=== PATIENT | male | born 1955 | race Two or more races ===

== ENCOUNTER 2020-11-30 10:34 | Inpatient (IN) | payer OTHER ==
[~2020-11-30] VITALS: Ht 162.6 cm; Wt 76.5 kg
[2020-11-30 11:20] LABS: Basophils # (auto) 0 10 ^3/uL (0-0.2); Basophils % (auto) 0.2 % (0.0-2.0); Eosinophils # (auto) 0 10 ^3/uL (0-0.8); Eosinophils % (auto) 0.1 % (0.0-7.0); Hematocrit 40.3 % (41.0-53.0); Hemoglobin 13.4 g/dL (13.5-17.5); Lymphocytes # (auto) 0.9 10 ^3/uL (0.4-5.4); Mean Corpuscular Hemoglobin 28.2 pg (28.0-32.0); Mean Corpuscular Hgb Conc. 33.3 g/dL (32.0-36.0); Mean Corpuscular Volume 84.7 fL (80.0-100.0); Monocytes # (auto) 0.8 10 ^3/uL (0-1.3); Monocytes % (auto) 8.4 % (0.0-12.0); Neutrophils # (auto) 8.2 10 ^3/uL (1.6-8.6); Neutrophils % (auto) 82.3 % (37.0-80.0); Platelet Count (auto) 227 10^3/uL (140-450); Red Blood Cells 4.76 10^6/uL (4.5-5.90); Red Cell Distribution Width 13.7 % (11.8-14.3)
[2020-11-30 11:30] LABS: Albumin 3.3 g/dL (3.4-5.0); Calcium 8.8 mg/dL (8.5-10.1)
[2020-11-30 11:35] LABS: BUN/Creatinine Ratio 20.2; Bilirubin, Total 0.8 mg/dL (0.2-1.0); Total Protein 8.1 g/dL (6.4-8.2)
[2020-11-30] MEDS ORDERED: FUROSEMIDE 40 MG/4 ML VIAL IV ONE (12:30)
[2020-11-30] MEDS ORDERED: ASPirin 81 mg TAB PO ONE (12:30)
[2020-11-30] MEDS ORDERED: METOPROLOL TARTRATE 1MG/1ML-5ML VIAL IV ONE (12:30)
[2020-11-30] MEDS ORDERED: ENOXAPARIN SOD 60 MG/0.6 ML SYRINGE SC ONE (12:30)
[2020-11-30] MEDS ORDERED: HYDROcodone-ACET 10/325MG TAB PO PRN (16:15)
[2020-11-30] MEDS ORDERED: NITROGLYCERIN 0.4 MG SL TAB SL PRN (16:15)
[2020-11-30] MEDS ORDERED: DEXTROSE (50%) 50ML SYRG IV PRN (16:15)
[2020-11-30] MEDS ORDERED: MORPHINE SULF INJ 2 MG/ML SYRINGE 1ML IV PRN (16:15)
[2020-11-30] MEDS: ACCU-CHEK COMFORT CURVE STRIP VI SCH (17:58)
[2020-11-30] MEDS: InsuLIN REG 1unit/0.01ml Soln (100units/ml) SC SCH (18:02)
[2020-11-30] MEDS ORDERED: ACETAMINOPHEN 500 MG TAB PO ONE (20:00)
[2020-11-30] MEDS ORDERED: ENOXAPARIN SOD 60 MG/0.6 ML SYRINGE SC SCH (22:00)
[2020-11-30] MEDS ORDERED: POTASSIUM CHL 10 Meq TABLET PO SCH (22:00)
[2020-11-30 22:15] VITALS: BP 100/65
[2020-11-30] MEDS ORDERED: VANCOMYCIN PER PHARMACY 0 MG IV SCH (23:30)
[2020-11-30] MEDS ORDERED: VANCOMYCIN 1GM/250ML 250 ML IV ONE (23:45)
[2020-12-01] MEDS ORDERED: VANCOMYCIN 1GM/250ML 250 ML IV ONE (00:45)
[2020-12-01] MEDS: busPIRone HCL 10 MG TAB PO SCH ×4 (00:49→22:00)
[2020-12-01] MEDS: ACCU-CHEK COMFORT CURVE STRIP VI SCH ×5 (00:54→21:14)
[2020-12-01] MEDS: InsuLIN REG 1unit/0.01ml Soln (100units/ml) SC SCH ×6 (01:19→21:21)
[2020-12-01] MEDS: FUROSEMIDE 20 MG/2 ML VIAL IV SCH ×2 (01:39→06:00)
[2020-12-01] MEDS: levoFLOXacin 500MG 100 ML IV SCH (01:40)
[2020-12-01 05:00] VITALS: BP 88/57
[2020-12-01 05:37] LABS: BUN/Creatinine Ratio 21.4; Calcium 8.3 mg/dL (8.5-10.1)
[2020-12-01] MEDS: LEVOTHYROXINE SODIUM 50 MCG TAB PO SCH (06:28)
[2020-12-01 09:00] VITALS: BP 106/74
[2020-12-01 09:43] LABS: INR 1.22 (0.9-1.15); Partial Thromboplastin Time 35.5 sec (23.0-31.2)
[2020-12-01] MEDS: ASPirin 81 mg TAB PO SCH (09:52)
[2020-12-01] MEDS: POTASSIUM CHL 20 Meq TABLET PO SCH ×2 (09:53→21:13)
[2020-12-01] MEDS: LISINOPRIL 10 MG TAB PO SCH (09:53)
[2020-12-01] MEDS: SERTRALINE HCL 50 MG TAB PO SCH (09:54)
[2020-12-01] MEDS: ATORVASTATIN 20 MG TAB PO SCH (09:54)
[2020-12-01] MEDS: PANTOPRAZOLE 40 MG TAB PO SCH (09:55)
[2020-12-01] MEDS: ENOXAPARIN SOD 40 MG/0.4 ML SYRINGE SC SCH (09:56)
[2020-12-01] MEDS: METOPROLOL SUCCINATE XL 50 MG TAB PO SCH (09:56)
[2020-12-01] MEDS: FUROSEMIDE 40 MG/4 ML VIAL IV SCH ×2 (10:30→18:00)
[2020-12-01] MEDS: VANCOMYCIN 750mg/250ml 250 ML IV SCH (12:15)
[2020-12-01 13:00] VITALS: BP 90/66
[2020-12-01] MEDS: ALBUTEROL SULF 2.5 MG/0.5ML(0.5%) NEB SOLN NEB SCH ×2 (14:14→22:39)
[2020-12-01 15:49] VITALS: BP 90/66
[2020-12-01 16:22] VITALS: BP 89/62
[2020-12-01 22:00] VITALS: BP 103/67
[2020-12-02] MEDS: VANCOMYCIN 750mg/250ml 250 ML IV SCH ×3 (00:07→23:12)
[2020-12-02] MEDS: levoFLOXacin 500MG 100 ML IV SCH (01:10)
[2020-12-02 05:00] VITALS: BP 101/73
[2020-12-02 05:52] LABS: Basophils # (auto) 0 10 ^3/uL (0-0.2); Basophils % (auto) 0.3 % (0.0-2.0); Eosinophils # (auto) 0 10 ^3/uL (0-0.8); Hematocrit 36.5 % (41.0-53.0); Hemoglobin 12.5 g/dL (13.5-17.5); Lymphocytes # (auto) 1.3 10 ^3/uL (0.4-5.4); Lymphocytes % (auto) 10.8 % (10.0-50.0); Mean Corpuscular Hemoglobin 28.5 pg (28.0-32.0); Mean Corpuscular Hgb Conc. 34.4 g/dL (32.0-36.0); Mean Corpuscular Volume 82.9 fL (80.0-100.0); Monocytes # (auto) 1.4 10 ^3/uL (0-1.3); Monocytes % (auto) 11.3 % (0.0-12.0); Neutrophils # (auto) 9.5 10 ^3/uL (1.6-8.6); Neutrophils % (auto) 77.6 % (37.0-80.0); Nucleated Red Blood Cells % 0.1 %; Platelet Count (auto) 233 10^3/uL (140-450); Red Cell Distribution Width 13.4 % (11.8-14.3); White Blood Cell 12.3 10^3/uL (4.4-10.8)
[2020-12-02] MEDS: FUROSEMIDE 40 MG/4 ML VIAL IV SCH ×3 (05:53→17:36)
[2020-12-02] MEDS: ACCU-CHEK COMFORT CURVE STRIP VI SCH ×4 (05:56→22:00)
[2020-12-02] MEDS: InsuLIN REG 1unit/0.01ml Soln (100units/ml) SC SCH ×4 (06:05→23:03)
[2020-12-02 06:17] LABS: Calcium 8.4 mg/dL (8.5-10.1); Potassium 4.5 mmol/L (3.5-5.1)
[2020-12-02] MEDS: LEVOTHYROXINE SODIUM 50 MCG TAB PO SCH (06:23)
[2020-12-02] MEDS: ALBUTEROL SULF 2.5 MG/0.5ML(0.5%) NEB SOLN NEB SCH ×3 (07:13→22:18)
[2020-12-02 08:55] VITALS: BP 102/68
[2020-12-02] MEDS: SERTRALINE HCL 50 MG TAB PO SCH (09:49)
[2020-12-02] MEDS: busPIRone HCL 10 MG TAB PO SCH ×2 (09:49→22:00)
[2020-12-02] MEDS: POTASSIUM CHL 20 Meq TABLET PO SCH ×2 (09:49→23:06)
[2020-12-02] MEDS: ASPirin 81 mg TAB PO SCH (09:50)
[2020-12-02] MEDS: ATORVASTATIN 20 MG TAB PO SCH (09:50)
[2020-12-02] MEDS: LISINOPRIL 10 MG TAB PO SCH (09:50)
[2020-12-02] MEDS: PANTOPRAZOLE 40 MG TAB PO SCH (09:50)
[2020-12-02] MEDS: METOPROLOL SUCCINATE XL 50 MG TAB PO SCH (09:51)
[2020-12-02] MEDS: ENOXAPARIN SOD 40 MG/0.4 ML SYRINGE SC SCH (09:58)
[2020-12-02 13:08] VITALS: BP 94/60
[2020-12-02 16:47] VITALS: BP 90/59
[2020-12-02 22:00] VITALS: BP 102/52
[2020-12-03] MEDS: levoFLOXacin 500MG 100 ML IV SCH (02:04)
[2020-12-03 05:00] VITALS: BP 100/59
[2020-12-03 06:13] LABS: Basophils # (auto) 0.1 10 ^3/uL (0-0.2); Basophils % (auto) 0.5 % (0.0-2.0); Eosinophils # (auto) 0.1 10 ^3/uL (0-0.8); Eosinophils % (auto) 0.9 % (0.0-7.0); Hematocrit 35.3 % (41.0-53.0); Hemoglobin 12.1 g/dL (13.5-17.5); Lymphocytes # (auto) 1.8 10 ^3/uL (0.4-5.4); Lymphocytes % (auto) 18.2 % (10.0-50.0); Mean Corpuscular Hemoglobin 28.5 pg (28.0-32.0); Mean Corpuscular Hgb Conc. 34.4 g/dL (32.0-36.0); Mean Corpuscular Volume 82.9 fL (80.0-100.0); Monocytes % (auto) 9.9 % (0.0-12.0); Neutrophils # (auto) 6.8 10 ^3/uL (1.6-8.6); Neutrophils % (auto) 70.5 % (37.0-80.0); Nucleated Red Blood Cells % 0.1 %; Platelet Count (auto) 239 10^3/uL (140-450); Red Blood Cells 4.26 10^6/uL (4.5-5.90); Red Cell Distribution Width 13.7 % (11.8-14.3); White Blood Cell 9.7 10^3/uL (4.4-10.8)
[2020-12-03] MEDS: ACCU-CHEK COMFORT CURVE STRIP VI SCH ×4 (06:28→22:05)
[2020-12-03 06:32] LABS: BUN/Creatinine Ratio 28.4; Potassium 4.4 mmol/L (3.5-5.1)
[2020-12-03] MEDS: InsuLIN REG 1unit/0.01ml Soln (100units/ml) SC SCH ×4 (06:32→22:10)
[2020-12-03] MEDS: LEVOTHYROXINE SODIUM 50 MCG TAB PO SCH (06:36)
[2020-12-03] MEDS: FUROSEMIDE 20 MG/2 ML VIAL IV SCH ×2 (06:39→18:17)
[2020-12-03] MEDS: ALBUTEROL SULF 2.5 MG/0.5ML(0.5%) NEB SOLN NEB SCH ×3 (07:12→22:04)
[2020-12-03 09:00] VITALS: BP 90/59
[2020-12-03] MEDS: ASPirin 81 mg TAB PO SCH (09:50)
[2020-12-03] MEDS: busPIRone HCL 10 MG TAB PO SCH ×2 (09:50→22:00)
[2020-12-03] MEDS: POTASSIUM CHL 20 Meq TABLET PO SCH ×2 (09:50→22:05)
[2020-12-03] MEDS: METOPROLOL SUCCINATE XL 50 MG TAB PO SCH (09:51)
[2020-12-03] MEDS: ATORVASTATIN 20 MG TAB PO SCH (09:51)
[2020-12-03] MEDS: PANTOPRAZOLE 40 MG TAB PO SCH (09:51)
[2020-12-03] MEDS: SERTRALINE HCL 50 MG TAB PO SCH (09:52)
[2020-12-03] MEDS: LISINOPRIL 5 MG TAB PO SCH (09:52)
[2020-12-03] MEDS: ENOXAPARIN SOD 40 MG/0.4 ML SYRINGE SC SCH (09:52)
[2020-12-03] MEDS: VANCOMYCIN 750mg/250ml 250 ML IV SCH (11:57)
[2020-12-03 13:00] VITALS: BP 83/63
[2020-12-03 17:00] VITALS: BP 95/70
[2020-12-03 22:14] VITALS: BP 93/72
[2020-12-04] MEDS: VANCOMYCIN 750mg/250ml 250 ML IV SCH ×2 (00:14→12:19)
[2020-12-04] MEDS: levoFLOXacin 500MG 100 ML IV SCH (01:56)
[2020-12-04 05:17] VITALS: BP 105/69
[2020-12-04] MEDS: FUROSEMIDE 20 MG/2 ML VIAL IV SCH ×2 (06:00→17:33)
[2020-12-04 06:13] LABS: Calcium 7.6 mg/dL (8.5-10.1); Potassium 4.2 mmol/L (3.5-5.1)
[2020-12-04 06:15] LABS: BUN/Creatinine Ratio 26.9
[2020-12-04] MEDS: ALBUTEROL SULF 2.5 MG/0.5ML(0.5%) NEB SOLN NEB SCH ×3 (06:32→19:30)
[2020-12-04] MEDS: InsuLIN REG 1unit/0.01ml Soln (100units/ml) SC SCH ×4 (06:38→21:20)
[2020-12-04] MEDS: ACCU-CHEK COMFORT CURVE STRIP VI SCH ×4 (06:40→21:20)
[2020-12-04] MEDS: LEVOTHYROXINE SODIUM 50 MCG TAB PO SCH (06:40)
[2020-12-04 06:47] VITALS: BP 105/69
[2020-12-04 09:00] VITALS: BP 104/66
[2020-12-04] MEDS: SERTRALINE HCL 50 MG TAB PO SCH (09:08)
[2020-12-04] MEDS: ASPirin 81 mg TAB PO SCH (09:08)
[2020-12-04] MEDS: busPIRone HCL 10 MG TAB PO SCH ×2 (09:08→22:00)
[2020-12-04] MEDS: ENOXAPARIN SOD 40 MG/0.4 ML SYRINGE SC SCH (09:09)
[2020-12-04] MEDS: POTASSIUM CHL 20 Meq TABLET PO SCH ×2 (09:10→21:20)
[2020-12-04] MEDS: PANTOPRAZOLE 40 MG TAB PO SCH (09:10)
[2020-12-04] MEDS: METOPROLOL SUCCINATE XL 50 MG TAB PO SCH (09:17)
[2020-12-04] MEDS: LISINOPRIL 5 MG TAB PO SCH (09:18)
[2020-12-04] MEDS: ATORVASTATIN 20 MG TAB PO SCH (09:20)
[2020-12-04] MEDS ORDERED: ALUM & MAG HYDROX-SIMETH LIQ(MAALOX) 30 ML PO PRN (11:15)
[2020-12-04] MEDS: ALUM & MAG HYDROX-SIMETH LIQ(MAALOX) 30 ML PO PRN ×2 (12:04→21:15)
[2020-12-04 13:00] VITALS: BP 90/65
[2020-12-04 17:02] VITALS: BP 99/60
[2020-12-04 21:55] VITALS: BP 97/63
[2020-12-05] MEDS: levoFLOXacin 500MG 100 ML IV SCH (02:00)
[2020-12-05 05:13] VITALS: BP 90/60
[2020-12-05 05:42] VITALS: BP 96/62
[2020-12-05] MEDS: ALBUTEROL SULF 2.5 MG/0.5ML(0.5%) NEB SOLN NEB SCH ×3 (06:03→22:49)
[2020-12-05] MEDS: FUROSEMIDE 20 MG/2 ML VIAL IV SCH ×2 (06:06→18:00)
[2020-12-05] MEDS: LEVOTHYROXINE SODIUM 50 MCG TAB PO SCH (06:07)
[2020-12-05] MEDS: ACCU-CHEK COMFORT CURVE STRIP VI SCH ×4 (06:07→21:31)
[2020-12-05] MEDS: ALUM & MAG HYDROX-SIMETH LIQ(MAALOX) 30 ML PO PRN ×2 (06:41→11:48)
[2020-12-05] MEDS: InsuLIN REG 1unit/0.01ml Soln (100units/ml) SC SCH ×4 (06:42→22:00)
[2020-12-05 09:00] VITALS: BP 99/58
[2020-12-05] MEDS: ATORVASTATIN 20 MG TAB PO SCH (09:25)
[2020-12-05] MEDS: ASPirin 81 mg TAB PO SCH (09:25)
[2020-12-05] MEDS: POTASSIUM CHL 20 Meq TABLET PO SCH ×2 (09:26→21:31)
[2020-12-05] MEDS: ENOXAPARIN SOD 40 MG/0.4 ML SYRINGE SC SCH (09:26)
[2020-12-05] MEDS: PANTOPRAZOLE 40 MG TAB PO SCH (09:26)
[2020-12-05] MEDS: LISINOPRIL 5 MG TAB PO SCH (09:26)
[2020-12-05] MEDS: SERTRALINE HCL 50 MG TAB PO SCH (09:26)
[2020-12-05] MEDS: busPIRone HCL 10 MG TAB PO SCH ×2 (09:27→21:31)
[2020-12-05 11:11] LABS: BUN/Creatinine Ratio 18.6; Potassium 4.4 mmol/L (3.5-5.1)
[2020-12-05 12:47] VITALS: BP 93/67
[2020-12-05 16:42] VITALS: BP 102/71
[2020-12-05] MEDS: VANCOMYCIN 750mg/250ml 250 ML IV SCH ×2 (18:09)
[2020-12-05 22:00] VITALS: BP 100/64
[2020-12-06] MEDS: levoFLOXacin 500MG 100 ML IV SCH (01:56)
[2020-12-06 05:38] VITALS: BP 96/59
[2020-12-06] MEDS: ALUM & MAG HYDROX-SIMETH LIQ(MAALOX) 30 ML PO PRN ×3 (05:48→18:15)
[2020-12-06 05:53] LABS: Basophils # (auto) 0 10 ^3/uL (0-0.2); Basophils % (auto) 0.5 % (0.0-2.0); Eosinophils # (auto) 0.2 10 ^3/uL (0-0.8); Eosinophils % (auto) 2.9 % (0.0-7.0); Hemoglobin 12.6 g/dL (13.5-17.5); Lymphocytes % (auto) 25.2 % (10.0-50.0); Mean Corpuscular Hemoglobin 28.4 pg (28.0-32.0); Mean Corpuscular Volume 83.3 fL (80.0-100.0); Monocytes # (auto) 0.8 10 ^3/uL (0-1.3); Monocytes % (auto) 10.5 % (0.0-12.0); Neutrophils # (auto) 4.9 10 ^3/uL (1.6-8.6); Neutrophils % (auto) 60.9 % (37.0-80.0); Nucleated Red Blood Cells % 0.1 %; Platelet Count (auto) 273 10^3/uL (140-450); Red Blood Cells 4.44 10^6/uL (4.5-5.90); Red Cell Distribution Width 13.4 % (11.8-14.3)
[2020-12-06] MEDS: VANCOMYCIN 750mg/250ml 250 ML IV SCH ×2 (06:00→17:55)
[2020-12-06] MEDS: FUROSEMIDE 20 MG/2 ML VIAL IV SCH ×2 (06:00→11:50)
[2020-12-06 06:14] LABS: BUN/Creatinine Ratio 18.9; Calcium 7.9 mg/dL (8.5-10.1); Potassium 4.4 mmol/L (3.5-5.1)
[2020-12-06] MEDS: LEVOTHYROXINE SODIUM 50 MCG TAB PO SCH (06:17)
[2020-12-06] MEDS: ACCU-CHEK COMFORT CURVE STRIP VI SCH ×4 (06:17→22:19)
[2020-12-06] MEDS: InsuLIN REG 1unit/0.01ml Soln (100units/ml) SC SCH ×4 (06:18→22:19)
[2020-12-06] MEDS: ALBUTEROL SULF 2.5 MG/0.5ML(0.5%) NEB SOLN NEB SCH ×3 (06:54→23:18)
[2020-12-06 09:21] VITALS: BP 96/65
[2020-12-06] MEDS: PANTOPRAZOLE 40 MG TAB PO SCH (09:56)
[2020-12-06] MEDS: ASPirin 81 mg TAB PO SCH (09:56)
[2020-12-06] MEDS: POTASSIUM CHL 20 Meq TABLET PO SCH ×2 (09:56→21:48)
[2020-12-06] MEDS: ENOXAPARIN SOD 40 MG/0.4 ML SYRINGE SC SCH (09:57)
[2020-12-06] MEDS: ATORVASTATIN 20 MG TAB PO SCH (09:57)
[2020-12-06] MEDS: SERTRALINE HCL 50 MG TAB PO SCH (09:57)
[2020-12-06] MEDS: LISINOPRIL 5 MG TAB PO SCH (09:57)
[2020-12-06] MEDS: busPIRone HCL 10 MG TAB PO SCH ×3 (09:58→21:57)
[2020-12-06 12:59] VITALS: BP 98/66
[2020-12-06 16:44] VITALS: BP 103/65
[2020-12-06 22:00] VITALS: BP 93/64
[2020-12-07] MEDS: levoFLOXacin 500MG 100 ML IV SCH (00:15)
[2020-12-07] MEDS: ALUM & MAG HYDROX-SIMETH LIQ(MAALOX) 30 ML PO PRN ×4 (00:16→17:56)
[2020-12-07 05:00] VITALS: BP 90/60
[2020-12-07] MEDS: VANCOMYCIN 750mg/250ml 250 ML IV SCH ×2 (06:43→17:44)
[2020-12-07] MEDS: ACCU-CHEK COMFORT CURVE STRIP VI SCH ×3 (06:43→17:44)
[2020-12-07] MEDS: LEVOTHYROXINE SODIUM 50 MCG TAB PO SCH (06:43)
[2020-12-07] MEDS: InsuLIN REG 1unit/0.01ml Soln (100units/ml) SC SCH ×3 (06:45→17:57)
[2020-12-07] MEDS: ALBUTEROL SULF 2.5 MG/0.5ML(0.5%) NEB SOLN NEB SCH ×2 (07:17→14:31)
[2020-12-07 09:00] VITALS: BP 94/51
[2020-12-07] MEDS: busPIRone HCL 10 MG TAB PO SCH (10:00)
[2020-12-07] MEDS: FUROSEMIDE 20 MG/2 ML VIAL IV SCH (10:00)
[2020-12-07] MEDS: LISINOPRIL 5 MG TAB PO SCH (10:00)
[2020-12-07] MEDS: SERTRALINE HCL 50 MG TAB PO SCH (10:00)
[2020-12-07] MEDS: ASPirin 81 mg TAB PO SCH (10:03)
[2020-12-07] MEDS: PANTOPRAZOLE 40 MG TAB PO SCH (10:03)
[2020-12-07] MEDS: POTASSIUM CHL 20 Meq TABLET PO SCH (10:04)
[2020-12-07] MEDS: ATORVASTATIN 20 MG TAB PO SCH (10:04)
[2020-12-07] MEDS: ENOXAPARIN SOD 40 MG/0.4 ML SYRINGE SC SCH (10:05)
[2020-12-07 11:17] VITALS: BP 94/51
[2020-12-07 13:00] VITALS: BP 95/67
[2020-12-07] MEDS ORDERED: POTA10TA51 PO (15:40)
[2020-12-07] MEDS ORDERED: FURO20TA3 PO (15:40)
[2020-12-07 16:36] VITALS: BP 94/66
[2020-12-07 17:00] VITALS: BP 94/66
== END 2020-12-07 20:31 | DRG 291 ==
LOC: ER 10:34 → EEVIPCON 10:34 → EDBD 10:34 → TELE 16:10 → TELE-WESTW 22:02
PROVIDERS: ADMIT Internal Medicine; ATTEND Internal Medicine
PROC: 0W993ZZ Drainage of Right Pleural Cavity, Percutaneous Approach (ICD-10-PCS; 2020-12-03)
PROC: 0W9B3ZZ Drainage of Left Pleural Cavity, Percutaneous Approach (ICD-10-PCS; principal; 2020-12-04)
DX: I11.0 Hypertensive heart disease with heart failure (principal); J18.9 Pneumonia, unspecified organism; J96.01 Acute respiratory failure with hypoxia; I50.21 Acute systolic (congestive) heart failure; J90 Pleural effusion, not elsewhere classified; E44.1 Mild protein-calorie malnutrition; J81.1 Chronic pulmonary edema; J98.11 Atelectasis; I24.9 Acute ischemic heart disease, unspecified; E11.65 Type 2 diabetes mellitus with hyperglycemia; E03.9 Hypothyroidism, unspecified; K21.9 Gastro-esophageal reflux disease without esophagitis; E78.5 Hyperlipidemia, unspecified; Z20.822 Contact with and (suspected) exposure to COVID-19; K27.9 Peptic ulcer, site unspecified, unspecified as acute or chronic, without hemorrhage or perforation; I25.2 Old myocardial infarction; Z83.3 Family history of diabetes mellitus; Z87.891 Personal history of nicotine dependence; Z68.29 Body mass index [BMI] 29.0-29.9, adult
CPT/HCPCS: 36415; 71045; 71046; 71250; 76604; 80048; 80053; 80202; 82962; 83735; 83880; 84443; 84484; 85025; 85610; 85730; 87040; 87070; 87086; 87205; 87426; 89051; 93005; 93306; 94640; 96372; 96374; 96375; G0378; J1815; J1956